=== PATIENT | female | born 2000 | race Two or more races ===

== ENCOUNTER 2024-10-18 13:53 | Emergency (ER) | payer MEDICAID ==
[~2024-10-18] VITALS: Ht 188 cm; Wt 75.0 kg
[2024-10-18 14:00] VITALS: O2SAT 98
[2024-10-18 14:18] VITALS: BP 124/81; PULSE 98; RESP 16; TEMP 36.9; O2SAT 99
== END 2024-10-18 17:36 | disposition left against medical advice (07) ==
LOC: ER 13:53
DX: R05.9 Cough, unspecified (principal)
CPT/HCPCS: 99281